=== PATIENT | female | born 1960 | race Two or more races ===

== ENCOUNTER 2017-06-11 10:17 | Day surgery (SDC) | payer BC ==
[2017-06-08 12:44] LABS: Basophils # (auto) 0 uL; Basophils % (auto) 0.5 % (0.0-2.0); Eosinophils # (auto) 0.3 uL; Eosinophils % (auto) 3.5 % (0.0-7.0); Hemoglobin 13.7 g/dL (12.2-16.2); Lymphocytes # (auto) 2.8 uL; Lymphocytes % (auto) 38.1 % (10.0-50.0); Mean Corpuscular Hemoglobin 31.2 pg (28.0-32.0); Mean Corpuscular Hgb Conc. 33.4 g/dL (32.0-36.0); Mean Corpuscular Volume 93.4 fL (80.0-100.0); Monocytes # (auto) 0.5 uL; Monocytes % (auto) 7.5 % (0.0-12.0); Neutrophils # (auto) 3.7 uL; Neutrophils % (auto) 50.4 % (37.0-80.0); Nucleated Red Blood Cells % 0.1 %; Platelet Count (auto) 255 10^3/uL (140-450); Red Blood Cells 4.39 10^6/uL (4.0-5.20); Red Cell Distribution Width 12.7 % (11.8-14.3); White Blood Cell 7.3 10^3/uL (4.4-10.8)
[2017-06-08 13:00] LABS: Urine Bacteria MANY /hpf (None Seen); Urine Blood Negative /uL (Negative); Urine Specific Gravity 1.004 (1.001-1.035); Urine WBC 1 /hpf (0 - 5)
[2017-06-08 13:03] LABS: Calcium 8.7 mg/dL (8.5-10.1); Potassium 3.8 mmol/L (3.5-5.1)
[2017-06-08 13:16] LABS: INR 0.94 (0.9-1.15); Partial Thromboplastin Time 25.9 sec (22.64-33.71); Prothrombin Time 10.2 sec (9.37-12.3)
[~2017-06-11] VITALS: Ht 154.9 cm; Wt 67.6 kg
[~2017-06-11 10:17] MED LIST: CHOL500023 PO; ESTR0.1C VA; OMEG100078 PO; SIMV-8 PO; THYR30TA PO; ZINC30TA3 PO; [UNRECOGNIZED DRUG - CODE] PO
[2017-06-11] MEDS ORDERED: CONJ ESTROGENS 0.625MG/GM VAG CRM 30GM PV ONE (10:22)
[2017-06-11] MEDS ORDERED: LIDOCAINE 1% HCL (LOCAL ANESTH.) INJ 20ML MDV ONE (10:22)
[2017-06-11] MEDS ORDERED: ceFAZolin 1GM VL ONE (10:22)
[2017-06-11] MEDS ORDERED: BUPIVACAINE W/ EPINEPH 0.25% INJ 50ML MDV ONE (10:22)
[2017-06-11] MEDS ORDERED: ceFAZolin 1GM/50ML 50 ML IV ONE (10:35)
[2017-06-11] MEDS ORDERED: PROPOFOL 10 MG/ML 20 ML IV ONE (11:02)
[2017-06-11] MEDS ORDERED: fentaNYL CITRATE 100 MCG/2 ML VL ONE (11:02)
[2017-06-11] MEDS ORDERED: MIDAZOLAM HCL 1MG/1ML-2 ML VIAL ONE (11:02)
[2017-06-11] MEDS ORDERED: fentaNYL CITRATE 100 MCG/2 ML VL IV PRN (12:15)
[2017-06-11] MEDS ORDERED: ePHEDrine SULFATE 50 MG/ML AMP IV PRN (12:15)
[2017-06-11] MEDS ORDERED: ONDANSETRON HCL 4 MG/2 ML VIAL IV ONE (12:15)
[2017-06-11] MEDS ORDERED: hydrALAZINE HCL 20 MG/ML VL IV PRN (12:15)
[2017-06-11] MEDS ORDERED: HYDROmorphone HCL 2 MG/ML VL ONE (12:27)
[2017-06-11] MEDS ORDERED: ONDANSETRON HCL 4 MG/2 ML VIAL ONE (12:27)
[2017-06-11] MEDS ORDERED: HYDROmorphone HCL 2 MG/ML VL IV PRN (12:45)
[2017-06-11 14:30] VITALS: BP 120/76
== END 2017-06-11 14:30 | disposition home or self-care (01) ==
LOC: SUR 10:17
PROVIDERS: ATTEND Obstetrics & Gynecology
DX: N81.10 Cystocele, unspecified (principal); N89.8 Other specified noninflammatory disorders of vagina; Z90.710 Acquired absence of both cervix and uterus; Z90.49 Acquired absence of other specified parts of digestive tract; E78.5 Hyperlipidemia, unspecified; F10.21 Alcohol dependence, in remission
CPT/HCPCS: 36415; 57106; 57240; 57288; 80048; 81001; 85025; 85610; 85730; 87086; C1771; J0690; J1170; J2001; J2250; J2405; J2704; J3010; 88302